=== PATIENT | male | born 1975 | race Caucasian/White ===

== ENCOUNTER 2023-10-31 18:10 | Emergency (ER) | payer SELFPAY ==
[2023-10-31 18:23] VITALS: BP 162/90
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
== END 2023-10-31 22:51 | disposition home or self-care (01) ==
LOC: EMR 18:10
PROVIDERS: EMERGENCY PHYSICIAN Emergency Medicine; FAMILY PHYSICIAN Family Medicine
DX: M54.50 Low back pain, unspecified (principal); V43.52XA Car driver injured in collision with other type car in traffic accident, initial encounter; R03.0 Elevated blood-pressure reading, without diagnosis of hypertension
CPT/HCPCS: 99282